=== PATIENT | male | born 1980 | race African-American/Black ===

== ENCOUNTER 2022-10-13 16:03 | Inpatient (IN) | payer OTHER ==
[~2022-10-13] VITALS: Ht 170.2 cm; Wt 84.9 kg
[2022-10-13] MEDS ORDERED: AMPICILLIN SOD/SULBACTAM SOD 3 GM in D5W MINI-BAG PLUS 100 ML IV ONE (16:50)
[2022-10-13] MEDS ORDERED: METOCLOPRAMIDE INJ 10MG/2ML VIAL IV ONE (16:50)
[2022-10-13] MEDS ORDERED: NS 1,000 ML IV ONE (16:50)
[2022-10-13] MEDS ORDERED: ONDANSETRON 4MG 2ML VIAL IV ONE (16:50)
[2022-10-13 17:25] LABS: BASO % 0.2 % (0.0-1.0); EOS # 0.2 10^3/uL (0.0-0.5); EOS % 1.3 % (0.0-3.0); HEMATOCRIT 43.7 % (42.0-52.0); HEMOGLOBIN 14.2 g/dl (13.5-17.5); LYMPH # 2.5 10^3/uL (1.5-5.0); LYMPH % 21.6 % (24.0-44.0); MEAN CORPUSCULAR HEMOGLOBIN 31.1 pg (27.0-33.0); MEAN CORPUSCULAR HGB CONC 32.5 g/dl (32.0-36.5); MEAN CORPUSCULAR VOLUME 95.6 fl (80.0-96.0); MONO # 1.1 10^3/uL (0.0-0.8); MONO % 9.1 % (2.0-8.0); NEUTROPHILS # 7.9 10^3/uL (1.5-8.5); NEUTROPHILS % 67.5 % (36.0-66.0); PLATELET COUNT, AUTOMATED 216 10^3/uL (150-450); RED BLOOD COUNT 4.57 10^6/uL (4.30-6.10); WHITE BLOOD COUNT 11.7 10^3/uL (4.0-10.0)
[2022-10-13] MEDS ORDERED: ISOVUE-370 76% 100ML VIAL As Ordered ONE (17:26)
[2022-10-13 17:50] LABS: ERYTHROCYTE SEDIMENTATION RATE 59 mm/hr (0-15)
[2022-10-13 19:29] LABS: RSV AMPLIFICATION NEGATIVE (NEGATIVE)
[2022-10-13] MEDS ORDERED: percocet (20:01)
[2022-10-13] MEDS ORDERED: HOME MED LIST COMPLETE! XX SCH (20:05)
[2022-10-13] MEDS ORDERED: HYDROMORPHONE HCL 0.5 MG/ 0.5 ML SYRINGE IV PRN (20:25)
[2022-10-13] MEDS ORDERED: NS 1,000 ML IV SCH (20:25)
[2022-10-13 22:51] VITALS: BP 121/84
[2022-10-13] MEDS: PANTOPRAZOLE 40MG VIAL IV SCH (22:55)
[2022-10-13] MEDS: AMPICILLIN SOD/SULBACTAM SOD 3 GM in D5W MINI-BAG PLUS 100 ML IV SCH (22:55)
[2022-10-14] VITALS: BP 126/67
[2022-10-14 02:00] VITALS: BP 113/58
[2022-10-14 04:00] VITALS: BP 114/63
[2022-10-14] MEDS: HEPARIN SOD (PORCINE) 5000UNITS/ML 1ML VIAL/SYRINGE SC SCH ×3 (05:15→21:06)
[2022-10-14] MEDS: AMPICILLIN SOD/SULBACTAM SOD 3 GM in D5W MINI-BAG PLUS 100 ML IV SCH ×4 (05:15→23:14)
[2022-10-14 05:33] LABS: BLOOD UREA NITROGEN 15 MG/DL (9-23); CALCIUM LEVEL 8.6 MG/DL (8.5-10.1); CARBON DIOXIDE LEVEL 28 MMOL/L (20-31); CHLORIDE LEVEL 104 MMOL/L (98-107); CREATININE FOR GFR 1.07 MG/DL (0.70-1.30); GLOMERULAR FILTRATION RATE > 60.0 (>60); GLUCOSE, FASTING 132 MG/DL (60-100); POTASSIUM SERUM 4.9 MMOL/L (3.5-5.1); SODIUM LEVEL 138 MMOL/L (136-145)
[2022-10-14 06:00] VITALS: BP 112/66
[2022-10-14 08:00] VITALS: BP 114/70
[2022-10-14] MEDS: PANTOPRAZOLE 40MG VIAL IV SCH (08:35)
[2022-10-14] MEDS: PANTOPRAZOLE 40MG TAB (PROTONIX) PO SCH (09:00)
[2022-10-14 09:22] LABS: HEMATOCRIT 38.4 % (42.0-52.0); HEMOGLOBIN 12.8 g/dl (13.5-17.5); LYMPH # 0.7 10^3/uL (1.5-5.0); LYMPH % 7.7 % (24.0-44.0); MEAN CORPUSCULAR HEMOGLOBIN 31.4 pg (27.0-33.0); MEAN CORPUSCULAR HGB CONC 33.3 g/dl (32.0-36.5); MEAN CORPUSCULAR VOLUME 94.3 fl (80.0-96.0); MONO # 0.3 10^3/uL (0.0-0.8); MONO % 2.7 % (2.0-8.0); NEUTROPHILS # 8.6 10^3/uL (1.5-8.5); NEUTROPHILS % 89.3 % (36.0-66.0); PLATELET COUNT, AUTOMATED 206 10^3/uL (150-450); RED BLOOD COUNT 4.07 10^6/uL (4.30-6.10); WHITE BLOOD COUNT 9.7 10^3/uL (4.0-10.0)
[2022-10-14] MEDS ORDERED: HYDROMORPHONE HCL 0.5 MG/ 0.5 ML SYRINGE IV PRN (10:45)
[2022-10-14] MEDS ORDERED: KETOROLAC 30 MG/ML 1ML VIAL IV PRN ×2 (10:45)
[2022-10-14 22:00] VITALS: BP 109/68
[2022-10-14] MEDS ORDERED: GI COCKTAIL 50ML BTL(HYOSCYAMINE/MAALOX/LIDOCAINE VISCOUS)(1:3:1) PO ONE (23:00)
[2022-10-15] MEDS: HEPARIN SOD (PORCINE) 5000UNITS/ML 1ML VIAL/SYRINGE SC SCH (05:25)
[2022-10-15] MEDS: AMPICILLIN SOD/SULBACTAM SOD 3 GM in D5W MINI-BAG PLUS 100 ML IV SCH (05:25)
[2022-10-15 06:00] VITALS: BP 104/63
[2022-10-15 07:29] LABS: BASO % 0.1 % (0.0-1.0); HEMATOCRIT 37.4 % (42.0-52.0); HEMOGLOBIN 12.5 g/dl (13.5-17.5); LYMPH # 0.8 10^3/uL (1.5-5.0); LYMPH % 5.5 % (24.0-44.0); MEAN CORPUSCULAR HEMOGLOBIN 31.5 pg (27.0-33.0); MEAN CORPUSCULAR HGB CONC 33.4 g/dl (32.0-36.5); MEAN CORPUSCULAR VOLUME 94.2 fl (80.0-96.0); MONO # 0.6 10^3/uL (0.0-0.8); MONO % 4.1 % (2.0-8.0); NEUTROPHILS # 12.5 10^3/uL (1.5-8.5); NEUTROPHILS % 89.8 % (36.0-66.0); PLATELET COUNT, AUTOMATED 238 10^3/uL (150-450); RED BLOOD COUNT 3.97 10^6/uL (4.30-6.10); WHITE BLOOD COUNT 13.9 10^3/uL (4.0-10.0)
[2022-10-15 07:54] LABS: BLOOD UREA NITROGEN 14 MG/DL (9-23); CALCIUM LEVEL 8.7 MG/DL (8.5-10.1); CARBON DIOXIDE LEVEL 29 MMOL/L (20-31); CHLORIDE LEVEL 103 MMOL/L (98-107); CREATININE FOR GFR 0.93 MG/DL (0.70-1.30); GLOMERULAR FILTRATION RATE > 60.0 (>60); GLUCOSE, FASTING 132 MG/DL (60-100); POTASSIUM SERUM 4.4 MMOL/L (3.5-5.1); SODIUM LEVEL 138 MMOL/L (136-145)
[2022-10-15] MEDS ORDERED: AUGMENTIN 875 MG TAB PO SCH (09:00)
[2022-10-15] MEDS: PANTOPRAZOLE 40MG TAB (PROTONIX) PO SCH (09:08)
[2022-10-15] MEDS ORDERED: AMOX875T2 PO (10:20)
[2022-10-15] MEDS ORDERED: ACET325C5 PO (10:20)
[2022-10-15] MEDS ORDERED: IBUP-1114 PO (10:20)
[2022-10-15] MEDS ORDERED: MIRA3350 PO (10:22)
[2022-10-15] MEDS ORDERED: BACL10TA2 PO (12:07)
== END 2022-10-15 12:35 | disposition home or self-care (01) | DRG 159 ==
LOC: M ED 16:03 → M ED INP 20:22 → ENRESERV 21:33 → M ICU 23:11 → M MS5PR 10-14 16:21
PROVIDERS: ADMIT Internal Medicine; ATTEND Student in an Organized Health Care Education/Training Program
DX: K12.2 Cellulitis and abscess of mouth (principal); R25.2 Cramp and spasm; R13.10 Dysphagia, unspecified; K11.20 Sialoadenitis, unspecified; R06.6 Hiccough; I10 Essential (primary) hypertension; Z90.49 Acquired absence of other specified parts of digestive tract; G47.33 Obstructive sleep apnea (adult) (pediatric); K59.00 Constipation, unspecified; L04.0 Acute lymphadenitis of face, head and neck

== ENCOUNTER 2023-06-19 18:07 | Emergency (ER) | payer OTHER ==
[~2023-06-19] VITALS: Ht 175.3 cm; Wt 84.5 kg
[~2023-06-19 18:07] MED LIST: ACET325C5 PO; AMOX875T2 PO; BACL10TA2 PO; IBUP-1114 PO; MIRA3350 PO; percocet
[2023-06-19] MEDS ORDERED: IBUPROFEN 800 MG TAB PO ONE (18:45)
[2023-06-19 19:57] VITALS: BP 118/76; TEMP 98.6; O2SAT 96
== END 2023-06-19 19:58 | disposition home or self-care (01) ==
LOC: M ED 18:07
DX: R05.9 Cough, unspecified (principal); B97.10 Unspecified enterovirus as the cause of diseases classified elsewhere; G47.33 Obstructive sleep apnea (adult) (pediatric)